=== PATIENT | female | born 1995 | race Two or more races ===

== ENCOUNTER 2021-10-12 06:25 | Emergency (ER) | payer OTHER ==
[~2021-10-12] VITALS: Ht 149.9 cm; Wt 56.7 kg
[2021-10-12] MEDS ORDERED: VENLAFAXINE HC150 M1 (06:41)
== END 2021-10-12 11:10 | disposition home or self-care (01) ==
LOC: ER 06:25
DX: N83.209 Unspecified ovarian cyst, unspecified side (principal); R10.2 Pelvic and perineal pain

== ENCOUNTER 2021-11-22 15:00 | Emergency (ER) | payer OTHER ==
[~2021-11-22] VITALS: Ht 149.9 cm; Wt 53.5 kg
[~2021-11-22 15:00] MED LIST: VENLAFAXINE HC150 M1
[2021-11-22] MEDS ORDERED: ZOFRAN8 MG (17:01)
[2021-11-22] MEDS ORDERED: [UNRECOGNIZED DRUG - OTHER] (17:01)
[2021-11-22] MEDS ORDERED: PEPCID AC20 MG PO (20:59)
[2021-11-22] MEDS ORDERED: ONDANSETRON ODT8 MG PO (20:59)
== END 2021-11-22 21:22 | disposition home or self-care (01) ==
LOC: ER 15:00
DX: O21.0 Mild hyperemesis gravidarum (principal); Z3A.01 Less than 8 weeks gestation of pregnancy

== ENCOUNTER 2021-12-03 19:33 | Emergency (ER) | payer OTHER ==
[~2021-12-03] VITALS: Ht 149.9 cm; Wt 52.6 kg
[~2021-12-03 19:33] MED LIST changes: +ONDANSETRON ODT8 MG PO; +PEPCID AC20 MG PO; +ZOFRAN8 MG; +[UNRECOGNIZED DRUG - OTHER]
== END 2021-12-04 03:12 | disposition home or self-care (01) ==
LOC: ER 19:33
DX: O21.0 Mild hyperemesis gravidarum (principal); Z3A.01 Less than 8 weeks gestation of pregnancy